=== PATIENT | female | born 1950 | race Caucasian/White ===

== ENCOUNTER → 2017-02-21 | Outpatient (CLI) | payer BC | LOC: MC.RAD 07:00 | DX: Z12.31 Encounter for screening mammogram for malignant neoplasm of breast (principal) ==

== ENCOUNTER 2017-03-10 07:20 | Outpatient (CLI) | payer BC ==
[~2017-03-10] VITALS: Ht 180.3 cm; Wt 118.3 kg
[2017-03-10] VITALS (7 sets, daily range): BP systolic 112–153; BP diastolic 60–75; PULSE 58–90; TEMP 97.6–98.1
[2017-03-10] MEDS ORDERED: DIOVAN 160MG160 MG PO (07:44)
[2017-03-10] MEDS ORDERED: CRESTOR5 MG PO (07:44)
[2017-03-10] MEDS ORDERED: ALEVE 220MG220 MG PO (07:45)
[2017-03-10] MEDS ORDERED: MELAT3MGTAB PO (07:45)
[2017-03-10] MEDS ORDERED: AGGRENOX ER 251 CER PO (07:46)
[2017-03-10 08:48] LABS: MEAN CELL VOLUME 93 fl (80.0-100.0); MEAN CORPUSCULAR HGB CONC 31 g/dl (33.0-37.0); MEAN PLATELET VOLUME 9.2 fl (7.4-10.4); PLATELET COUNT 167 K/mm3 (130-400); REDCELL DISTRIBUTION WIDTH-CV 19.8 % (11.5-14.5)
[2017-03-10 08:50] LABS: HEMATOCRIT 28.7 % (37.0-47.0); HEMOGLOBIN 8.8 g/dl (12.5-16.0); MEAN CORPUSCULAR HEMOGLOBIN 28 pg (27.0-31.0)
[2017-03-10 09:44] LABS: BAND 5 % (0-10); LYMPHOCYTE 43 % (20.0-51.0); NEUTROPHILS 48 % (42.0-75.2)
[2017-03-10 09:45] LABS: ANISOCYTOSIS 1+; HYPOCHROMIA 3+; PLATELET ESTIMATE NORMAL (NORMAL)
== END 2017-03-10 11:54 | disposition home or self-care (01) ==
LOC: SDCO 07:20
PROVIDERS: Pathology Anatomic Pathology & Clinical Pathology
DX: C90.00 Multiple myeloma not having achieved remission (principal); D70.9 Neutropenia, unspecified; D64.9 Anemia, unspecified; I10 Essential (primary) hypertension; E78.5 Hyperlipidemia, unspecified; Z86.73 Personal history of transient ischemic attack (TIA), and cerebral infarction without residual deficits; Z80.1 Family history of malignant neoplasm of trachea, bronchus and lung; E83.52 Hypercalcemia
CPT/HCPCS: J2704; J7120

== ENCOUNTER → 2017-03-24 | Outpatient (CLI) | payer BC ==
[~2017-03-24] MED LIST: AGGRENOX ER 251 CER PO; ALEVE 220MG220 MG PO; CRESTOR5 MG PO; DIOVAN 160MG160 MG PO; MELAT3MGTAB PO
== END ==
LOC: COL.RAD 11:30
DX: C90.00 Multiple myeloma not having achieved remission (principal)

== ENCOUNTER 2018-02-25 15:07 | Emergency (ER) | payer BC ==
[~2018-02-25] VITALS: Ht 180.3 cm; Wt 98.6 kg
[~2018-02-25 15:07] MED LIST changes: +BACTRIM DS 8001 TAB PO; +ELIQUIS 5MG PO; +PREDNISONE10 MG PO; +PROTONIX 40MG T40 MG PO; +ROXICODONE 55 MG/TAB PO; +SULFAMETHOXAZOLE-TMP; +ZOVIRAX400 MG PO; +ZYLOPRIM 300MG300 MG PO
[2018-02-25 15:16] VITALS: TEMP 98.5
[2018-02-25 15:59] LABS: BASO % 0.7 % (0.0-2.0); EOS % 0.7 % (0-4.0); GRAN # 1.7 (1.4-6.5); GRAN % 62.4 % (42.2-75.2); HEMOGLOBIN 12.3 g/dl (12.5-16.0); LYMPH # 0.7 (1.2-3.4); LYMPH % 26.9 % (20.0-51.0); MEAN CELL VOLUME 88 fl (80.0-100.0); MEAN CORPUSCULAR HEMOGLOBIN 29 pg (27.0-31.0); MEAN CORPUSCULAR HGB CONC 33 g/dl (33.0-37.0); MEAN PLATELET VOLUME 10.1 fl (7.4-10.4); MONO # 0.2 (0.1-0.6); MONO % 8.9 % (1.7-9.3); PLATELET COUNT 113 K/mm3 (130-400); RED BLOOD COUNT 4.19 M/mm3 (4.10-5.30); REDCELL DISTRIBUTION WIDTH-CV 13.3 % (11.5-14.5)
[2018-02-25 16:00] LABS: HEMATOCRIT 36.9 % (37.0-47.0)
[2018-02-25 16:07] LABS: ALBUMIN 3.6 gm/dL (3.5-5.0); BILIRUBIN,TOTAL 0.6 mg/dL (0.0-1.0); CALCIUM 8.5 mg/dL (8.4-10.2); CREATININE, serum 0.83 mg/dL (0.52-1.25); TOTAL PROTEIN 6.1 gm/dL (6.4-8.2)
[2018-02-25 16:18] LABS: TROPONIN-I 0.014 ng/mL (0.000-0.034)
[2018-02-25] MEDS ORDERED: VITAMIN C500 MG PO (17:28)
[2018-02-25] MEDS ORDERED: REVLIMID10 MG PO (17:28)
[2018-02-25] MEDS ORDERED: ZITHROMAX 250M250 MG PO (17:29)
[2018-02-25] MEDS ORDERED: ELIQUIS 5MG PO (17:29)
[2018-02-25 19:36] VITALS: BP 116/76; PULSE 77
== END 2018-02-25 20:30 | disposition short-term general hospital (02) ==
LOC: COL.ER 15:07
PROVIDERS: Emergency Medicine
DX: J18.9 Pneumonia, unspecified organism (principal); R09.02 Hypoxemia; D72.819 Decreased white blood cell count, unspecified; I10 Essential (primary) hypertension; E78.5 Hyperlipidemia, unspecified; M10.9 Gout, unspecified; Z94.84 Stem cells transplant status; Z86.73 Personal history of transient ischemic attack (TIA), and cerebral infarction without residual deficits; Z86.718 Personal history of other venous thrombosis and embolism; Z85.79 Personal history of other malignant neoplasms of lymphoid, hematopoietic and related tissues; Z87.891 Personal history of nicotine dependence
CPT/HCPCS: J1956; J7030

== ENCOUNTER → 2018-06-29 | Outpatient (CLI) | payer BC ==
[~2018-06-29] MED LIST changes: +REVLIMID10 MG PO; +VITAMIN C500 MG PO; +ZITHROMAX 250M250 MG PO
== END ==
LOC: MC.RAD 05-22 14:00
DX: Z12.31 Encounter for screening mammogram for malignant neoplasm of breast (principal); C90.00 Multiple myeloma not having achieved remission

== ENCOUNTER 2019-03-01 04:52 | Inpatient (IN) | payer BC ==
[~2019-03-01] VITALS: Ht 180.3 cm; Wt 90.1 kg
[2019-03-01 05:46] LABS: HEMOGLOBIN 12.3 g/dl (12.5-16.0); MEAN CELL VOLUME 94 fl (80.0-100.0); MEAN CORPUSCULAR HEMOGLOBIN 32 pg (27.0-31.0); MEAN CORPUSCULAR HGB CONC 34 g/dl (33.0-37.0); MEAN PLATELET VOLUME 10.1 fl (7.4-10.4); PLATELET COUNT 130 K/mm3 (130-400); RED BLOOD COUNT 3.87 M/mm3 (4.10-5.30); REDCELL DISTRIBUTION WIDTH-CV 13.4 % (11.5-14.5)
[2019-03-01 05:54] LABS: PROTHROMBIN TIME 23.9 SECONDS (9.7-12.8)
[2019-03-01] MEDS ORDERED: ALDACTONE50 MG PO (05:55)
[2019-03-01] MEDS ORDERED: K-TAB10 PO (05:55)
[2019-03-01] MEDS ORDERED: MASON NATURAL2000 IU PO (05:56)
[2019-03-01 06:01] LABS: CALCIUM 8.4 mg/dL (8.4-10.2); CREATININE, serum 1.33 (0.52-1.25); TOTAL PROTEIN 7.6 gm/dL (6.4-8.2)
[2019-03-01 06:04] LABS: HEMATOCRIT 36.3 % (37.0-47.0); POTASSIUM 2.9 mmol/L (3.4-5.0)
[2019-03-01 06:12] LABS: TROPONIN-I 0.015 ng/mL (0.000-0.035)
[2019-03-01 06:25] LABS: BAND 24 % (0-10); LYMPHOCYTE 13 % (20.0-51.0); NEUTROPHILS 61 % (42.0-75.2); PLATELET ESTIMATE NORMAL (NORMAL)
[2019-03-01 10:03] VITALS: BP 104/56; PULSE 85; TEMP 97.7
[2019-03-01 13:00] VITALS: BP 97/51; PULSE 109; TEMP 98.4
--- NOTE | 2019-03-01 13:09 | NUR ---
Pt arrived to floor at this time via cart with ER staff. pt in bathroom, gets around well. Denies needs, coughing often, chills, provided warm blanket and ice water and turned up room temp. Will continue to monitor.
[2019-03-01 16:57] VITALS: BP 102/48; PULSE 110; TEMP 100.2
[2019-03-01 18:30] VITALS: TEMP 98.7
--- NOTE | 2019-03-01 19:06 | NUR ---
Pt doing okay, called Jessica CR [facility] hospitalist regarding potassium level, heart rate, blood pressure and temp, tylenol given per orders. Pt resting in bed, bedside shift report given to Kalina who will resume care.
[2019-03-01 19:23] VITALS: BP 97/54; PULSE 88; TEMP 98
[2019-03-01 23:50] VITALS: BP 89/44; PULSE 86; TEMP 98.6
--- NOTE | 2019-03-02 02:57 | NUR ---
ASSESSMENT COMPLETE. RESTING IN BED. INDEPENDENT IN ROOM. DENIES NEEDS AT THIS TIME.
[2019-03-02 05:15] VITALS: BP 107/48; PULSE 85; TEMP 98.2
[2019-03-02 07:43] LABS: MEAN CELL VOLUME 94 fl (80.0-100.0); MEAN CORPUSCULAR HGB CONC 34 g/dl (33.0-37.0); MEAN PLATELET VOLUME 9.8 fl (7.4-10.4); PLATELET COUNT 102 K/mm3 (130-400); RED BLOOD COUNT 2.76 M/mm3 (4.10-5.30); REDCELL DISTRIBUTION WIDTH-CV 13.7 % (11.5-14.5)
[2019-03-02 07:49] LABS: ALBUMIN 2.8 gm/dL (3.5-5.0); BILIRUBIN,TOTAL 1.2 mg/dL (0.0-1.0); CALCIUM 7.4 mg/dL (8.4-10.2); CREATININE, serum 1.01 (0.52-1.25); TOTAL PROTEIN 5.6 gm/dL (6.4-8.2)
[2019-03-02 07:59] VITALS: BP 113/54; PULSE 87; TEMP 98.2
[2019-03-02 08:03] LABS: POTASSIUM 2.9 mmol/L (3.4-5.0)
--- NOTE | 2019-03-02 08:26 | NUR ---
Assessment completed, alert/oriented, vital signs have been stable, denies pain, has dry non-productive cough, lungs are dimnished with some fine crackles to LLL, RVP + and she is in droplet p/c, heart RRR/ distal pulses are palpable, she is sitting up in bed and just had RT nebulizer, a.m meds and IV Rocephin given at this time, she is about to eat breakfast and denies other needs at this time
[2019-03-02 08:31] LABS: HEMOGLOBIN 8.9 g/dl (12.5-16.0); MEAN CORPUSCULAR HEMOGLOBIN 32 pg (27.0-31.0)
[2019-03-02 09:06] LABS: BAND 15 % (0-10); LYMPHOCYTE 19 % (20.0-51.0); NEUTROPHILS 61 % (42.0-75.2); PLATELET ESTIMATE DECREASED (NORMAL)
[2019-03-02 09:16] LABS: MEAN CELL VOLUME 93 fl (80.0-100.0); MEAN CORPUSCULAR HGB CONC 34 g/dl (33.0-37.0); PLATELET COUNT 106 K/mm3 (130-400); REDCELL DISTRIBUTION WIDTH-CV 13.5 % (11.5-14.5)
[2019-03-02 09:24] LABS: HEMOGLOBIN 9.6 g/dl (12.5-16.0); MEAN CORPUSCULAR HEMOGLOBIN 32 pg (27.0-31.0)
[2019-03-02 10:22] LABS: BAND 21 % (0-10); EOSINOPHIL 1 % (0-4); LYMPHOCYTE 28 % (20.0-51.0); NEUTROPHILS 50 % (42.0-75.2); PLATELET ESTIMATE DECREASED (NORMAL)
[2019-03-02 10:23] LABS: OVALOCYTES 1+
--- NOTE | 2019-03-02 10:38 | NUR ---
VIN met with the patient and her sister, Latia, to discuss discharge plan. The patient lives in [place] with her , Edison (ph#[phone]). She reports independence with ADLs and does not have any DME. The patient's PCP is Dr. Fahad Lopez and she receives her medications from [facility]. She reports no difficulties obtaining her meds. The patient does not have advanced directives and she was not interested in completing them at this time. The patient plans to return home with her upon discharge. No additional needs at this time.
[2019-03-02 12:41] VITALS: BP 95/50; PULSE 87; TEMP 98.4
[2019-03-02 14:45] VITALS: BP 129/61; PULSE 86; TEMP 98.4
[2019-03-02 19:02] VITALS: BP 105/54; PULSE 81; TEMP 97.5
--- NOTE | 2019-03-02 21:30 | NUR ---
Patient resting in bed at this time. Patient states she has a headache and genrealized body aches, tylenol given. Patient is independent in room, droplet percautions in place. Patient understands percautions. Vital signs stable at this time. IV in left AC.
[2019-03-02 23:01] VITALS: BP 117/54; PULSE 87; TEMP 97.6
[2019-03-03 04:31] VITALS: BP 123/56; PULSE 84; TEMP 98.2
--- NOTE | 2019-03-03 08:19 | NUR ---
Assessment completed, alert/oriented, vital signs stable, reports intermittent headache and body aches, reports continued general malaise, denies any N/V and is tolerating oral intake well, lungs are diminished with some fine crackles noted to Left lower lobe, heart RRR, sputum Cx pending, she denies other needs at this time
[2019-03-03 08:38] LABS: CALCIUM 8.1 mg/dL (8.4-10.2); CREATININE, serum 0.82 (0.52-1.25); POTASSIUM 3.2 mmol/L (3.4-5.0)
[2019-03-03 08:39] LABS: MEAN CELL VOLUME 95 fl (80.0-100.0); MEAN CORPUSCULAR HGB CONC 34 g/dl (33.0-37.0); MEAN PLATELET VOLUME 9.7 fl (7.4-10.4); PLATELET COUNT 117 K/mm3 (130-400); RED BLOOD COUNT 2.91 M/mm3 (4.10-5.30)
[2019-03-03 08:42] LABS: HEMATOCRIT 27.7 % (37.0-47.0); HEMOGLOBIN 9.3 g/dl (12.5-16.0); MEAN CORPUSCULAR HEMOGLOBIN 32 pg (27.0-31.0)
[2019-03-03 09:10] LABS: BAND 26 % (0-10); EOSINOPHIL 3 % (0-4); LYMPHOCYTE 19 % (20.0-51.0); NEUTROPHILS 48 % (42.0-75.2); PLATELET ESTIMATE DECREASED (NORMAL)
[2019-03-03 09:35] VITALS: BP 132/53; PULSE 86; TEMP 98.2
[2019-03-03 13:11] VITALS: BP 139/64; PULSE 80; TEMP 98.9
[2019-03-03 18:00] VITALS: BP 118/56; PULSE 91; TEMP 100.4
--- NOTE | 2019-03-03 19:00 | NUR ---
REPORT RECEIVED FROM EDENILSON LOOMIS; CARE OF PT ASSUMED AT THIS TIME. BEDSIDE ROUNDS COMPLETED, PT DENIES NEEDS. CALL LIGHT WITHIN REACH.
[2019-03-03 19:52] VITALS: BP 132/62; PULSE 90; TEMP 98.2
--- NOTE | 2019-03-03 22:32 | NUR ---
PT IS AWAKE, ALERT, OX4; REPORTS A MACHADO CURRENTLY AND IS PROVIDED WITH TYLENOL FOR SAME. PT DENIES SOB; LS COARSE TO BASES BILAT. REPORTS A FREQUENT MOIST COUGH WITH OCC THICK SPUTUM. NO DISTRESS NOTED. CALL LIGHT WITHIN REACH.
[2019-03-03 23:13] VITALS: BP 110/50; PULSE 86; TEMP 98.4
[2019-03-04 03:20] VITALS: BP 125/49; PULSE 88; TEMP 98.3
--- NOTE | 2019-03-04 06:04 | NUR ---
PT HAS HAD A GREAT NIGHT, SLEPT THROUGH THE NIGHT WITHOUT ANY ISSUES. PT AWAKENED EARLY THIS AM AND IS JUST RESTING IN BED, DENIES PAIN OR OTHER CONCERNS. CALL LIGHT WITHIN REACH.
--- NOTE | 2019-03-04 07:05 | NUR ---
REPORT GIVEN TO EDENILSON LOOMIS.
[2019-03-04 07:20] LABS: MEAN CELL VOLUME 96 fl (80.0-100.0); MEAN CORPUSCULAR HGB CONC 34 g/dl (33.0-37.0); MEAN PLATELET VOLUME 9.8 fl (7.4-10.4); PLATELET COUNT 129 K/mm3 (130-400); RED BLOOD COUNT 2.84 M/mm3 (4.10-5.30); REDCELL DISTRIBUTION WIDTH-CV 14.4 % (11.5-14.5)
[2019-03-04 07:27] LABS: HEMATOCRIT 27.3 % (37.0-47.0); HEMOGLOBIN 9.2 g/dl (12.5-16.0); MEAN CORPUSCULAR HEMOGLOBIN 32 pg (27.0-31.0)
[2019-03-04 07:28] LABS: ALBUMIN 2.8 gm/dL (3.5-5.0); BILIRUBIN,TOTAL 0.5 mg/dL (0.0-1.0); CALCIUM 8.3 mg/dL (8.4-10.2); CREATININE, serum 0.83 (0.52-1.25); MAGNESIUM 1.7 mg/dL (1.6-2.3); POTASSIUM 3.1 mmol/L (3.4-5.0); TOTAL PROTEIN 5.7 gm/dL (6.4-8.2)
--- NOTE | 2019-03-04 08:00 | NUR ---
Assessment completed, alert/oriented, vital signs stable, denies pain or discomfort/ does report intermittent headache, sputum Cx negative, repeat BCx pending, lungs dimnished / still has non-productive cough, patient hoping to be discharged home today, denies other needs at this time
[2019-03-04 08:08] VITALS: BP 129/59; PULSE 76; TEMP 98.2
[2019-03-04 08:41] LABS: BAND 9 % (0-10); LYMPHOCYTE 29 % (20.0-51.0); NEUTROPHILS 61 % (42.0-75.2); OVALOCYTES 1+; PLATELET ESTIMATE NORMAL (NORMAL); SCHISTOCYTES 1+
[2019-03-04 13:00] VITALS: BP 125/95; PULSE 82; TEMP 99.2
[2019-03-04 16:57] VITALS: BP 134/61; PULSE 96; TEMP 99
[2019-03-04 18:47] LABS: CALCIUM 8.7 mg/dL (8.4-10.2); CREATININE, serum 0.94 (0.52-1.25); POTASSIUM 3.4 mmol/L (3.4-5.0)
--- NOTE | 2019-03-04 20:45 | NUR ---
Patient assessed at this time. Alert and oriented x 4, and able to make needs known. Complained of headache, and given PRN APAP as requested. Peripheral IV to left AC flushed. Site is without redness, warmth, swelling, and pain. Denies SOB and dyspnea. LS CTA. Occasional dry cough. Unable to produce sputum. HRR. Telmetry in place-NS. Capillary refill less than 3 seconds. Non-tenting skin turgor. BSAx4. Abdomen soft and non-tender. 1+ edema BLE. Given PRN Melatonin as requested. Voices no further questions, needs, or concerns at this time. Resting in bed with call light within reach. Encouraged to call with any needs.
[2019-03-04 20:49] VITALS: BP 123/60; PULSE 68; TEMP 97.8
[2019-03-04 21:14] VITALS: BP 109/59; PULSE 94; TEMP 98.2
[2019-03-05 01:00] VITALS: BP 107/61; PULSE 73; TEMP 97.6
[2019-03-05 04:55] VITALS: BP 129/65; PULSE 84; TEMP 97.9
--- NOTE | 2019-03-05 05:07 | NUR ---
Patient has had no further complaints of pain or discomfort. Afebrile this shift. Has been resting in bed. Denies having any questions, needs, or concerns. Call light is within reach.
[2019-03-05 07:03] LABS: HEMOGLOBIN 10.2 g/dl (12.5-16.0); MEAN CELL VOLUME 97 fl (80.0-100.0); MEAN CORPUSCULAR HEMOGLOBIN 32 pg (27.0-31.0); MEAN CORPUSCULAR HGB CONC 33 g/dl (33.0-37.0); MEAN PLATELET VOLUME 9.6 fl (7.4-10.4); PLATELET COUNT 145 K/mm3 (130-400); RED BLOOD COUNT 3.24 M/mm3 (4.10-5.30); REDCELL DISTRIBUTION WIDTH-CV 14.6 % (11.5-14.5)
[2019-03-05 07:12] LABS: HEMATOCRIT 31.4 % (37.0-47.0)
[2019-03-05 07:26] LABS: CALCIUM 8.9 mg/dL (8.4-10.2); CREATININE, serum 0.81 (0.52-1.25); MAGNESIUM 1.6 mg/dL (1.6-2.3); POTASSIUM 3.2 mmol/L (3.4-5.0)
[2019-03-05 08:12] LABS: BAND 20 % (0-10); LYMPHOCYTE 25 % (20.0-51.0); NEUTROPHILS 47 % (42.0-75.2); PLATELET ESTIMATE NORMAL (NORMAL)
[2019-03-05 09:12] VITALS: BP 128/68; PULSE 88; TEMP 98.1
[2019-03-05] MEDS ORDERED: OMNICEF 300MG300 MG PO (11:40)
--- NOTE | 2019-03-05 13:00 | NUR ---
The patient is to discharge back home with her today, 03/05. SW met with the patient to review discharge plan. She had no other questions or concerns for discharge. No additional needs at this time.
[2019-03-05 13:28] VITALS: BP 139/80; PULSE 84; TEMP 98
--- NOTE | 2019-03-05 16:18 | NUR ---
PATIENT DISCHARGING VIA WC TO PERSONAL VEHICLE WITH . GAVE DISCHARGE INSTRUCTIONS AND FOLLOW UP APTS. ANSWERED ALL QUESTIONS/CONCERNS. IV DC'D. PATIENT DISCHARGED.
== END 2019-03-05 16:20 | disposition home or self-care (01) | DRG 194 ==
LOC: COL.ER 04:52 → MEDICAL 08:30
PROVIDERS: Emergency Medicine; Physician Assistant; ADMIT Internal Medicine
DX: J13 Pneumonia due to Streptococcus pneumoniae (principal); C90.00 Multiple myeloma not having achieved remission; Z94.84 Stem cells transplant status; N17.9 Acute kidney failure, unspecified; D61.818 Other pancytopenia; R78.81 Bacteremia; I10 Essential (primary) hypertension; R00.0 Tachycardia, unspecified; E87.6 Hypokalemia; I95.9 Hypotension, unspecified; I77.810 Thoracic aortic ectasia; M10.9 Gout, unspecified; Z79.01 Long term (current) use of anticoagulants; Z86.73 Personal history of transient ischemic attack (TIA), and cerebral infarction without residual deficits; Z86.718 Personal history of other venous thrombosis and embolism; Z86.711 Personal history of pulmonary embolism; Z87.891 Personal history of nicotine dependence; E78.5 Hyperlipidemia, unspecified
CPT/HCPCS: 99222-AI; 99231-AI; 99233-AI; 99239; A4216; J0456; J0696; J1200; J1885; J3475; J7030; J7040; J7050; J7120; Q9967

== ENCOUNTER → 2020-05-25 | Outpatient (CLI) | payer BC ==
[~2020-05-25] MED LIST changes: +ALDACTONE50 MG PO; +CALCIUM 600MG+D1 TAB PO; +DIOVAN 80MG80 MG PO; +K-DUR 10 MEQ T10 MEQ PO; +K-TAB10 PO; -MELAT3MGTAB PO; +MELATIN 3 MG-11 TAB PO; +OMNICEF 300MG300 MG PO; +PHARMASSURE CHE30 MG PO; +VITAMIN D 400400 IU PO
== END ==
LOC: MC.RAD 06:54
DX: Z12.31 Encounter for screening mammogram for malignant neoplasm of breast (principal)

== ENCOUNTER 2020-06-12 06:42 | Outpatient (CLI) | payer BC ==
[~2020-06-12] VITALS: Ht 177.8 cm; Wt 105.9 kg
[~2020-06-12 06:42] MED LIST changes: -CALCIUM 600MG+D1 TAB PO; -DIOVAN 80MG80 MG PO; -K-DUR 10 MEQ T10 MEQ PO; -PHARMASSURE CHE30 MG PO
[2020-06-12 08:42] VITALS: BP 112/73; PULSE 60; TEMP 97.7
[2020-06-12] MEDS ORDERED: ALDACTONE50 MG PO (08:45)
[2020-06-12] MEDS ORDERED: K-DUR 10 MEQ T10 MEQ PO (08:46)
[2020-06-12] MEDS ORDERED: ELIQUIS 5MG PO (08:47)
[2020-06-12] MEDS ORDERED: REVLIMID10 MG PO (08:47)
[2020-06-12] MEDS ORDERED: ZYLOPRIM 300MG300 MG PO (08:48)
[2020-06-12] MEDS ORDERED: DIOVAN 80MG80 MG PO (08:50)
[2020-06-12] MEDS ORDERED: PHARMASSURE CHE30 MG PO (08:52)
[2020-06-12] MEDS ORDERED: CALCIUM 600MG+D1 TAB PO (08:52)
[2020-06-12 09:33] LABS: HEMOGLOBIN 10.4 g/dl (12.5-16.0); MEAN CELL VOLUME 100 fl (80.0-100.0); MEAN CORPUSCULAR HEMOGLOBIN 33 pg (27.0-31.0); MEAN CORPUSCULAR HGB CONC 33 g/dl (33.0-37.0); MEAN PLATELET VOLUME 10.4 fl (7.4-10.4); PLATELET COUNT 139 K/mm3 (130-400); RED BLOOD COUNT 3.16 M/mm3 (4.10-5.30); REDCELL DISTRIBUTION WIDTH-CV 14.7 % (11.5-14.5)
[2020-06-12 09:34] VITALS: BP 128/67; PULSE 64
[2020-06-12 09:45] VITALS: BP 118/63; PULSE 58
[2020-06-12 10:00] VITALS: BP 122/68; PULSE 64
[2020-06-12 10:09] LABS: HEMATOCRIT 31.5 % (37.0-47.0)
[2020-06-12 10:15] VITALS: BP 123/66; PULSE 60
[2020-06-12 10:34] LABS: BAND 13 % (0-10); EOSINOPHIL 2 % (0-4); LYMPHOCYTE 39 % (20.0-51.0); NEUTROPHILS 40 % (42.0-75.2); PLATELET ESTIMATE NORMAL (NORMAL)
--- NOTE | 2020-06-12 10:40 | NUR ---
dISCHARGE INSTRUCTIONS GIVEN TO PT.pT VERBALIZES UNDERSTANDING.int REMOVED,CATHETER TIP INTACT.pT ESCORTED OUT VIA WHEELCHAIR BY THIS NURSE.
== END 2020-06-12 11:47 | disposition home or self-care (01) ==
LOC: SDCO 06:42
PROVIDERS: Pathology Anatomic Pathology & Clinical Pathology
DX: C90.00 Multiple myeloma not having achieved remission (principal); E83.52 Hypercalcemia; D64.9 Anemia, unspecified; I10 Essential (primary) hypertension; E78.5 Hyperlipidemia, unspecified; Z86.718 Personal history of other venous thrombosis and embolism; Z86.711 Personal history of pulmonary embolism; Z87.891 Personal history of nicotine dependence; M19.90 Unspecified osteoarthritis, unspecified site; Z86.73 Personal history of transient ischemic attack (TIA), and cerebral infarction without residual deficits
CPT/HCPCS: J2250; J2405; J2704; J3010; J7120

== ENCOUNTER 2020-10-16 05:31 | Emergency (ER) | payer BC ==
[~2020-10-16] VITALS: Ht 177.8 cm; Wt 100.0 kg
[~2020-10-16 05:31] MED LIST changes: +CALCIUM 600MG+D1 TAB PO; +DIOVAN 80MG80 MG PO; +K-DUR 10 MEQ T10 MEQ PO; +PHARMASSURE CHE30 MG PO
[2020-10-16 05:48] LABS: HEMOGLOBIN 10.2 g/dl (12.5-16.0); MEAN CELL VOLUME 110 fl (80.0-100.0); MEAN CORPUSCULAR HEMOGLOBIN 32 pg (27.0-31.0); MEAN CORPUSCULAR HGB CONC 29 g/dl (33.0-37.0); MEAN PLATELET VOLUME 12.8 fl (7.4-10.4); PLATELET COUNT 153 K/mm3 (130-400); RED BLOOD COUNT 3.16 M/mm3 (4.10-5.30); REDCELL DISTRIBUTION WIDTH-CV 14.8 % (11.5-14.5)
[2020-10-16 05:55] LABS: HEMATOCRIT 34.8 % (37.0-47.0)
[2020-10-16 06:39] LABS: ALBUMIN 2.7 gm/dL (3.5-5.0); BILIRUBIN,TOTAL 1.4 mg/dL (0.0-1.0); CALCIUM 8.4 mg/dL (8.4-10.2); CREATININE, serum 4.78 (0.52-1.25); POTASSIUM 4.2 mmol/L (3.4-5.0); TOTAL PROTEIN 5.3 gm/dL (6.4-8.2)
[2020-10-16 06:56] LABS: BAND 5 % (0-10); LYMPHOCYTE 84 % (20.0-51.0); METAMYELOCYTE 2 % (0-0); MYELOCYTE 1 % (0-0); NEUTROPHILS 5 % (42.0-75.2)
[2020-10-16 06:57] LABS: ANISOCYTOSIS 1+; OVALOCYTES 1+; PLATELET ESTIMATE NORMAL (NORMAL); POIKILOCYTOSIS 1+; POLYCHROMASIA 1+
[2020-10-16 07:00] VITALS: TEMP 98.2
[2020-10-16 07:04] LABS: TROPONIN-I 0.171 ng/mL (0.000-0.035)
[2020-10-16 07:23] LABS: ARTERIAL BLD GAS TCO2 CT 7.6; ARTERIAL BLOOD GAS BASE EXCESS -24.2 (-2-2); ARTERIAL BLOOD GAS HCO3 6.6 meq/L (22-26); ARTERIAL BLOOD GAS PCO2 30.9 mmHg (35-45)
[2020-10-16 07:24] LABS: ARTERIAL BLOOD GAS pH 6.95 (7.35-7.45)
[2020-10-16 07:25] LABS: ARTERIAL BLOOD GAS PO2 143.9 mmHg (80-100)
[2020-10-16 09:40] VITALS: BP 138/98
[2020-10-16 10:18] LABS: ALBUMIN 2.5 gm/dL (3.5-5.0); BILIRUBIN,TOTAL 1.7 mg/dL (0.0-1.0); CALCIUM 7.7 mg/dL (8.4-10.2); CREATININE, serum 4.64 (0.52-1.25); POTASSIUM 4.5 mmol/L (3.4-5.0); TOTAL PROTEIN 5.2 gm/dL (6.4-8.2)
[2020-10-16 10:30] LABS: TROPONIN-I 0.185 ng/mL (0.000-0.035)
--- NOTE | 2020-10-16 10:41 | NUR ---
Initial visit; Patient in Emergency Department, [employer] offered prayer for Imelda and comfort and assistance for her and son. [employer] continues to look in on Imelda as she is undergoing testing and care.
--- NOTE | 2020-10-16 10:58 | NUR ---
this RT called over for [employer], pt off of vent at this time, this RT took Bag and continued manual ventilation that was already in progress see CODE BLUE sheet
[2020-10-16 12:22] VITALS: PULSE 0
== END 2020-10-16 12:24 | disposition expired ==
LOC: COL.ER 05:31
PROVIDERS: Emergency Medicine; Student in an Organized Health Care Education/Training Program
DX: J96.01 Acute respiratory failure with hypoxia (principal); R40.4 Transient alteration of awareness; C90.00 Multiple myeloma not having achieved remission; Z79.01 Long term (current) use of anticoagulants; Z20.822 Contact with and (suspected) exposure to COVID-19
CPT/HCPCS: C1751; C9113; J0330; J0461; J2543; J3010; J3370; J7030; J7040; J7060